=== PATIENT | female | born 1945 | race Hispanic/Latino ===

== ENCOUNTER 2017-05-12 10:09 | Outpatient (CLI) | payer MEDICARE ==
--- NOTE | 2017-05-12 11:35 | XRay Report ---
XRAY BILATERAL HIPS AND AP PELVIS THREE VIEWS: 05/12/17 00:00:00 CLINICAL: Bilateral hip pain FINDINGS: Right: No fracture or dislocation. Mild osteoarthritis with superior acetabular eburnation and mild joint space narrowing. Normal soft tissues. Left: No fracture or dislocation. Mild osteoarthritis with superior acetabular eburnation and mild joint space narrowing. Large greater trochanteric enthesophytes.Normal soft tissues. Bilateral iliac bone enthesophytes. The pelvic bones are otherwise intact.Normal SI joints. IMPRESSION: 1. Mild bilateral osteoarthritis of the hips. 2. A nonspecific enthesopathy with the most prominent enthesophytes at the left greater trochanter.
== END 2017-05-12 10:10 | disposition home or self-care (01) ==
LOC: SPVIMAG 10:09
PROVIDERS: ATTEND Orthopaedic Surgery Sports Medicine
DX: M16.0 Bilateral primary osteoarthritis of hip (principal); M77.8 Other enthesopathies, not elsewhere classified
CPT/HCPCS: 73521